=== PATIENT | female | born 1965 | race Caucasian/White ===

== ENCOUNTER 2018-05-04 11:17 | Emergency (ER) | payer SELFPAY ==
[2018-05-04] MEDS: ONDANSETRON HCL/PF 4 MG/ 2ML VIAL IVP ONE (12:33)
[2018-05-04 12:43] LABS: MEAN CORPUSCULAR HEMOGLOBIN 28.6 pg (28.0-34.0)
[2018-05-04 12:44] LABS: BASOPHILS % 1.1 (0.0-1.5); EOSINOPHILS % 1.8 % (0.0-6.8); MONOCYTES % 3.9 % (0.0-11.0); NEUTROPHILS # 11.5 # k/uL (1.4-7.7)
[2018-05-04 13:04] LABS: eGFR (Non-African) > 60
[2018-05-04 13:32] LABS: APPEARANCE,URINE CLOUDY (CLEAR); COLOR,URINE YELLOW (YELLOW); OCCULT BLOOD,URINE NEGATIVE (NEGATIVE); PH URINE 5.5 (5.0 - 8.0)
[2018-05-04] MEDS: 0.9 % SODIUM CHLORIDE 1,000 ML IV ONE (13:36)
--- NOTE | 2018-05-04 14:12 | Diagnostic Imaging Report ---
JAMAR DIGGS (PHARMACY PICKING TECH) - ER [facility] [address] [facility].[address] [address] Report Submission Date: May 04, 2018 1:41:24 PM CUSTOMER CARE REPRESENTATIVE Patient Study Name: CHERYL WORTHINGTON Date: May 04, 2018 1:06:45 PM CUSTOMER CARE REPRESENTATIVE Modality Type: DX Gender: F Description: CHEST 2VIEW : 65 Institution: [facility] Physician: JAMAR DIGGS (PHARMACY PICKING TECH) - ER Examination: PA and lateral chest. History: Evaluate lung alcaraz. Comparison exam: None available. Findings: PA and lateral views of the chest demonstrates a normal cardiac and mediastinal silhouette. No focal infiltrate. No blunting of the costophrenic margins. Osseous structures are appropriate for age. Impression: No acute pulmonary process. Electronically signed on May 04, 2018 1:41:24 PM CUSTOMER CARE REPRESENTATIVE by: Mateo BLUNT
--- NOTE | 2018-05-04 14:13 | Diagnostic Imaging Report ---
JAMAR DIGGS (SAP DIRECTOR) - ER [facility] [address] [facility] [place] [address]. [id number] Report Submission Date: May 04, 2018 1:55:54 PM PUNCHER Patient Study Name: CHERYL WORTHINGTON Date: May 04, 2018 1:23:31 PM PUNCHER Modality Type: CT\SR Gender: F Description: CT ABD PELVIS W/ CON : 65 Institution: [facility] Physician: JAMAR DIGGS (MIGUEL ANGEL) - ER CT abdomen and pelvis with contrast History: Elevated white blood cell count Technique: Helically acquired images were obtained from the hemidiaphragms to the pelvic floor following IV but no oral contrast. Findings: The gallbladder is abnormal, likely filled with numerable tiny stones. Right upper quadrant ultrasound would be recommended for further assessment in this regard. The liver, spleen, pancreas and left kidney are unremarkable. There is a tiny low-density nodule of the right adrenal gland with Hounsfield units of 13, consistent with an adenoma. This nodule measures 8 mm in greatest dimension. There is mild fullness of the left adrenal gland. Projecting anteriorly from the mid pole of the right kidney, there is a cystic lesion with several internal septations which appear thin by CT. This lesion measures 4.0 x 2.0 cm in greatest dimension. Ultrasound would be helpful for further assessment of the internal contents of this cystic lesion. There is aortoiliac atherosclerosis without aneurysm. Small and large bowel loops are normal in caliber. The appendix is normal. There has been a hysterectomy. There is no free fluid in the abdomen or pelvis. Bladder is unremarkable. There is no hydronephrosis and no ureteral stones are seen. Lung bases are clear aside from minor posterior dependent atelectasis. Impression: Mild posterior bibasilar dependent atelectasis. Abnormal gallbladder, probably filled with multiple tiny stones but right upper quadrant ultrasound would be recommended for further assessment. Additionally, there is a cystic lesion anteriorly at the midpole of the right kidney which contains septations which do appear thin by CT but ultrasound would be helpful for further assessment in this regard as well. No hydronephrosis. No renal or ureteral stones. Normal appendix. Electronically signed on May 04, 2018 1:55:54 PM PUNCHER by: Christi BLUNT
--- NOTE | 2018-05-04 14:21 | ED Physician Documentation ---
General Adult - HISTORIAN Historian: patient, spouse - HPI Stated Complaint: high bloog sugar Chief Complaint: General Adult Further Comments: yes (53 year old female patient presents with complaint of high blood sugar. Patient complains of nausea; denies vomiting. Reports missing work for 2 days this week and last week for fatigue, nausea and not feeling well. Patient stopped her diabetes medication 5 years ago - metformin a nd glyberide. Does not have PCP at this time.) - ROS CONST: no problems EYES/ENT: none CVS/RESP: none GI/: none MS/SKIN/LYMPH: none NEURO/PSYCH: denies: headache - PAST HX Past History: none Other History: diabetes Type 2 Allergies/Adverse Reactions: Allergies Allergy/AdvReac Type Severity Reaction Status Date / Time latex Allergy Verified 05/04/18 11:51 Penicillins Allergy Verified 05/04/18 11:51 Home Medications: Ambulatory Orders Medication Instructions Recorded Azithromycin [Zithromax] 250 mg PO DAILY #6 tablet 05/04/18 Metformin HCl [Glucophage] 500 mg PO DAILY #14 tablet 05/04/18 Promethazine HCl [Phenergan] 25 mg PO Q6H PRN #12 tablet 05/04/18 - SOCIAL HX Smoking History: cigarettes - FAMILY HX Family History: No - VITAL SIGNS Vital Signs: Vital Signs Temp Pulse Resp BP Pulse Ox 99.4 F 73 16 128/65 97 05/04/18 11:38 05/04/18 11:38 05/04/18 11:38 05/04/18 11:38 05/04/18 11:38 - REVIEWED ASSESSMENTS Nursing Assessment Reviewed: Yes Vitals Reviewed: Yes Progress - Progress Progress: WBC count 16. Temp 99.4 on arrival; patient denies fevers or chills. Will progress with chest xray and add CT abd/pelvis due to nausea [address] Munson - agrees patient needs close outpatient follow up. Patient is a self pay and had no PCP. Will write outpatient order to redraw lab. Extensive discussion with patient and regarding lab and CT results; explained need for close follow up, recommended Mayra Corbin or Dr Haque office for follow up. Will start on low dose Metformin and have PCP adjust dose. Discussed signs and symptoms to return to ER for - patient verbalized understanding. Outpatient order for lab on Wednesday; ER provider on [place] to review results. ED Results Lab/Radiology - Lab Results Lab Results: Lab Results 05/04/18 05/04/18 05/04/18 14:03 12:22 12:22 WBC 16.00 K/ul H K/ul (4.00-12.00) RBC 5.53 M/ul H M/ul (3.90-5.20) Hgb 15.8 g/dL g/dL (12.0-16.0) Hct 48.1 % H % (34.5-46.5) MCV 87.0 fl fl (80.0-100.0) MCH 28.6 pg pg (28.0-34.0) MCHC 32.9 g/dL g/dL (30.0-36.0) RDW 13.3 % % (11.3-14.3) Plt Count 265 K/mm3 K/mm3 (130-400) Neut % (Auto) 72.2 % % (39.0-79.0) Lymph % (Auto) 21.0 % % (16.0-50.0) [place] % (Auto) 3.9 % % (0.0-11.0) Eos % (Auto) 1.8 % % (0.0-6.8) Baso % (Auto) 1.1 (0.0-1.5) Neut # (Auto) 11.5 # k/uL H # k/uL (1.4-7.7) Lymph # (Auto) 3.4 # k/uL # k/uL (0.6-4.0) [place] # (Auto) 0.6 # k/uL # k/uL (0.0-0.9) Eos # (Auto) 0.3 # k/uL # k/uL (0.0-0.6) Baso # (Auto) 0.2 # k/uL # k/uL (0.0-0.5) Sodium 139 mmol/L mmol/L (136-145) Potassium 3.7 mmol/L mmol/L (3.5-5.1) Chloride 103 mmol/L mmol/L (98-107) Carbon Dioxide 29 mmol/L mmol/L (22-30) BUN 16 mg/dL mg/dL (7-17) Creatinine 0.38 mg/dL L mg/dL (0.52-1.04) Estimated Creat Clear 230 Est GFR ( Amer) > 60 (60 - ) Est GFR (Non-Af Amer) > 60 (60 - ) Glucose 265 mg/dL H mg/dL (74-106) Lactate 1.6 U/L U/L (0.7-2.1) Calcium 8.6 mg/dL mg/dL (8.4-10.2) Total Bilirubin 0.5 mg/dL mg/dL (0.2-1.3) AST 18 U/L U/L (15-46) ALT 15 U/L U/L (13-69) Alkaline Phosphatase 80 U/L U/L (38-126) Total Protein 6.8 g/dL g/dL (6.3-8.2) Albumin 4.3 g/dL g/dL (3.5-5.0) Urine Color Urine Appearance Urine pH Ur Specific [place] Urine Protein Urine Ketones Urine Occult Blood Urine Nitrite Urine Bilirubin Urine Urobilinogen Ur Leukocyte Esterase Urine Glucose Influenza A (Rapid) Influenza B (Rapid) 05/04/18 12:20 WBC RBC Hgb Hct MCV MCH MCHC RDW Plt Count Neut % (Auto) Lymph % (Auto) [place] % (Auto) Eos % (Auto) Baso % (Auto) Neut # (Auto) Lymph # (Auto) [place] # (Auto) Eos # (Auto) Baso # (Auto) Sodium Potassium Chloride Carbon Dioxide BUN Creatinine Estimated Creat Clear Est GFR ( Amer) Est GFR (Non-Af Amer) Glucose Lactate Calcium Total Bilirubin AST ALT Alkaline Phosphatase Total Protein Albumin Urine Color Yellow (YELLOW) Urine Appearance Cloudy H (CLEAR) Urine pH 5.5 (5.0 - 8.0) Ur Specific [place] >=1.030 H (1.010-1.030) Urine Protein Negative mg/dL mg/dL (NEGATIVE) Urine Ketones Negative mg/dL mg/dL (NEGATIVE) Urine Occult Blood Negative (NEGATIVE) Urine Nitrite Negative (NEGATIVE) Urine Bilirubin Negative (NEGATIVE) Urine Urobilinogen 1.0 Eu Eu (0.2-1.0) Ur Leukocyte Esterase Negative (NEGATIVE) Urine Glucose 3+ mg/dL H mg/dL (NEGATIVE) Influenza A (Rapid) Negative (NEGATIVE) Influenza B (Rapid) Negative (NEGATIVE) - Orders Orders: ED Orders Category Date Time Status Place IV Lock 1T Care 05/04/18 12:13 Active CHEST 2VIEW [RAD] Stat Exams 05/04/18 12:[address] ABD & PELVIS W/ CON Stat Exams 05/04/18 Taken BLOOD CULTURE Stat Lab 05/04/18 Ordered CBC/PLATELET/DIFF Stat Lab 05/04/18 12:22 Completed CMP Stat Lab 05/04/18 12:22 Completed GLYCOHEMOGLOBIN A1C with eAG Routine Lab 05/04/18 12:22 Received INFLUENZA A&B Stat Lab 05/04/18 12:20 Completed LACTATE Stat Lab 05/04/18 14:03 Ordered UA MACRO DIP ONLY Stat Lab 05/04/18 12:20 Completed 0.9 % Sodium Chloride [Normal Saline] 1,000 ml Med 05/04/18 13:05 Discontinued IV NOW Chem Sticks Med 05/04/18 12:00 Ordered 1 each MC PRN Ondansetron HCl/Pf [Zofran] Med 05/04/18 12:13 Discontinued 4 mg IVP NOW ONE cefTRIAXone SODIUM [Rocephin] Med 05/04/18 14:10 Once 1 gm IV NOW ONE General Adult Physical Exam - PHYSICAL EXAM GENERAL APPEARANCE: mild distress EENT: eye inspection normal, ENT inspection normal, pharynx normal, no signs of dehydration, CHRISTIANO, no nystagmus, TM's nml RESPIRATORY: no resp distress, chest non-tender, breath sounds normal CVS: reg rate & rhythm, heart sounds normal, equal pulses, no murmur, no gallop, PMI nml, no JVD, no friction rub, 24 ABDOMEN: soft, no organomegaly, normal bowel sounds, no abdominal bruit, no distension BACK: normal inspection, no CVA tenderness SKIN: warm/dry, normal color, other (healed scab on mons pubis) EXTREMITIES: non-tender, normal range of motion, no evidence of injury, no edema, J, GROOMING ASSISTANT NEURO: oriented X3, CN's nml as tested, motor nml, sensation nml, mood/affect nml Discharge Clincal Impression: Kidney lesion Leukocytosis Qualifiers: Leukocytosis type: unspecified Qualified Code(s): D72.829 - Elevated white blood cell count, unspecified Cholelithiasis Qualifiers: Cholelithiasis location: gallbladder Cholecystitis presence: without cholecystitis Biliary obstruction: without biliary obstruction Qualified Code(s): K80.20 - Calculus of gallbladder without cholecystitis without obstruction Prescriptions: Azithromycin [Zithromax] 250 mg PO DAILY #6 tablet Metformin HCl [Glucophage] 500 mg PO DAILY #14 tablet Promethazine HCl [Phenergan] 25 mg PO Q6H PRN #12 tablet PRN Reason: Nausea / Vomiting Referrals: Primary Doctor,No [Primary Care Provider] - 2 Days Additional Instructions: primary care doctor in the next 1-2 days. Re-check lab on Wednesday. Order provided. Diet: Clear liquids Sprite/7-up Juices apple, white grape Gatorade/Powerade Jello Popsicles When tolerating clear liquids, advance to bland/brat diet - such as crackers, rice, Bananas, apples/applesauce or toast Then Huggins diet Return to the emergency department or call your doctor, if you are having severe abdominal pain, fever >101.0, or if there is blood in the vomit or diarrhea, or you cannot keep down liquids or solid food. Fever: Use Tylenol or Ibuprofen as needed per package directions Tylenol 500mg po q4h prn pain Ibuprofen 800mg po TID prn pain - do not take for more than 4 days. Condition: Stable Disposition: 01 HOME, SELF-CARE Decision to Admit: NO Decision Time: 14:26
[2018-05-04] MEDS: cefTRIAXone SODIUM 1 GM/50 ML INJ IV ONE (14:30)
[2018-05-04] MEDS ORDERED: cefTRIAXone SODIUM 1 GM INJ IV SCH (15:00)
[2018-05-04] MEDS ORDERED: 0.9 % SODIUM CHLORIDE 50 ML IV.SOLN IV ONE (15:00)
[2018-05-04 15:18] VITALS: BP 107/66
== END 2018-05-04 15:17 | disposition home or self-care (01) ==
LOC: ED 11:17
DX: N28.9 Disorder of kidney and ureter, unspecified (principal); D72.829 Elevated white blood cell count, unspecified; K80.20 Calculus of gallbladder without cholecystitis without obstruction
CPT/HCPCS: 36415; 71046; 74177; 80053; 81002; 83036; 83605; 85025; 87040; 87400; 96374; 96375; 99284; 99285; J0696; J2405; J7030; Q9967; S1016